=== PATIENT | female | born 1980 | race American Indian/Alaskan Native ===

== ENCOUNTER 2018-05-24 10:44 | Emergency (ER) | payer SELFPAY ==
[2018-05-24 11:14] VITALS: BP 130/67
--- NOTE | 2018-05-24 11:16 | Emergency Department Report ---
Chief Complaint: Extremity Injury, Upper Stated Complaint: PAINFUL HANDS Time Seen by Provider: 05/24/18 11:13 - HPI History of Present Illness: This is a 37 y.o. female that presents with right wrist and hand pain for 2 years that has increased intensity over the past weeks. - ROS Review of Systems: right wrist pain - Exam Vital Signs: Vital Signs 05/24/18 11:12 Temperature 97.9 F Pulse Rate 59 L Respiratory 20 Rate Blood Pressure 130/67 O2 Sat by Pulse 99 Oximetry MSE screening note: Focused history and physical exam performed. Due to findings the following was ordered: XR right wrist ACC for further evaluation ED Disposition for MSE Condition: Stable
[2018-05-24] MEDS ORDERED: DECADRON IM ONE (13:46)
[2018-05-24] MEDS ORDERED: TORADOL IM ONE (13:46)
--- NOTE | 2018-05-24 14:08 | Emergency Department Report ---
HPI - General Chief Complaint: Extremity Injury, Upper Time Seen by Provider: 05/24/18 11:13 - HPI HPI: This is a 37-year-old female who presents complaining of bilateral hand pain intermittently for the past 2 years. Patient's is worsening with lifting and movement. 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 Patient states that she did not sustain any trauma injuries to the hand. Patient also states that she has a history of thyroid disorder and is out of her Synthroid medication. Patient brought prescription bottle to verify that she does take this medication. Patient is requesting a refill until she is able to follow up with her primary care physician. Patient denies fevers/chills/nausea vomiting/abdominal pain/any other complaints ED Past Medical Hx - Past Medical History Additional medical history: Thyroid prob - Surgical History Additional Surgical History: thyroidectomy - Social History Smoking Status: Never Smoker Substance Use Type: None - Medications Home Medications: Home Medications Medication Instructions Recorded Confirmed Last Taken Type Ibuprofen [Motrin] 800 mg PO Q8HR #30 tablet 05/24/18 Unknown Rx Levothyroxine Sodium 137 mcg PO QAM #60 tablet 05/24/18 Unknown Rx [Levothyroxine] ED Review of Systems ROS: Stated complaint: PAINFUL HANDS Other details as noted in HPI Comment: All other systems reviewed and negative Physical Exam - Physical Exam Vital Signs: Vital Signs 05/24/18 11:12 Temperature 97.9 F Pulse Rate 59 L Respiratory 20 Rate Blood Pressure 130/67 O2 Sat by Pulse 99 Oximetry Physical Exam: GENERAL: Alert and oriented x3, no apparent distress, Normal Gait, atraumatic. HEAD: Head is normocephalic and a-traumatic. BACK: Full range of motion, no spinal tenderness, Tenderness to palpation of the trapezius muscles and latissimus dorsi muscles of the back EXTREMITIES/MUSCULOSKELETAL: No cyanosis, clubbing, rash, lesions or edema. Radial Pulses 2+ bilaterally. UE 5+ strength bilaterally, hence show no lesions or laceration, not edematous, nontender to palpation for range of motion of the hands bilaterally. NEUROLOGIC: The patient is cooperative with no focal neurologic deficits. SKIN: Warm and dry, No lesions, No ulceration or induration present. ED Course Vital Signs 05/24/18 11:12 Temperature 97.9 F Pulse Rate 59 L Respiratory 20 Rate Blood Pressure 130/67 O2 Sat by Pulse 99 Oximetry ED Medical Decision Making - Medical Decision Making 37-year-old female presents with arthralgia the hands Discussed the patient will need to follow-up with an orthopedic doctor as symptoms have been going on for 2 years. Vital signs are normal patient is in no acute distress Critical care attestation.: If time is entered above; I have spent that time in minutes in the direct care of this critically ill patient, excluding procedure time. ED Disposition Clinical Impression: Bilateral hand pain, Arthralgia Disposition: TO HOME OR SELFCARE Is pt being admited?: No Does the pt Need Aspirin: No Condition: Stable Instructions: Levothyroxine (By mouth), Arthralgia (ED) Additional Instructions: Make sure to follow up with the primary care physician as discussed. Take all your medications as you've been prescribed. If you have any worsening symptoms or develop new symptoms please return to ED immediately. Prescriptions: Levothyroxine Sodium [Levothyroxine] 137 mcg PO QAM #60 tablet Ibuprofen [Motrin] 800 mg PO Q8HR #30 tablet [facility] [Primary Care Provider] - 3-5 Days MILI PARKER MD [Staff Physician] - 3-5 Days Forms: Accompanied Note, Work/School Release Form(ED) Time of Disposition: 14:08
--- NOTE | 2018-05-24 14:34 | XRay Report ---
PROCEDURE: XR WRIST 3+V RT TECHNIQUE: 4 view radiographic examination of the right wrist HISTORY: medial wrist pain COMPARISONS: None FINDINGS: There is no radiographic evidence of definite acute fracture or dislocation. No evidence of osseous lesion. Joint spaces are maintained. There is no evidence of significant degenerative arthrosis. IMPRESSION: No definite radiographically visible acute skeletal pathology This document is electronically signed by Jude Mooney MD., May 24 2018 02:32:47 PM ET
== END 2018-05-24 14:21 | disposition home or self-care (01) ==
LOC: ED 10:44
DX: M79.641 Pain in right hand (principal); M79.642 Pain in left hand; E89.0 Postprocedural hypothyroidism
CPT/HCPCS: 73110; 96372; 99283; J1100; J1885